=== PATIENT | female | born 1940 | race Caucasian/White ===

== ENCOUNTER 2017-02-26 20:43 | Emergency (ER) | payer MEDICARE, OTHER | END 2017-02-27 01:50 | disposition home or self-care (01) | LOC: ER1 20:43 | DX: M79.662 Pain in left lower leg (principal); M79.661 Pain in right lower leg; G89.29 Other chronic pain; E11.9 Type 2 diabetes mellitus without complications; Z79.02 Long term (current) use of antithrombotics/antiplatelets; Z79.84 Long term (current) use of oral hypoglycemic drugs; Z79.899 Other long term (current) drug therapy; M06.9 Rheumatoid arthritis, unspecified; Z79.891 Long term (current) use of opiate analgesic; Z88.1 Allergy status to other antibiotic agents; Z91.041 Radiographic dye allergy status | CPT/HCPCS: 93005; 96372; 99283; J2270 ==

== ENCOUNTER → 2020-12-20 | Outpatient (CLI) | payer MEDICARE, OTHER ==
[~2020-12-20] MED LIST: CEFTIN PO; CLINDAMYCIN HC150 MG PO; LEVAQUIN500 MG PO; PYRIDIUM200 MG PO
[2020-12-21 08:15] LABS: HIV SCREEN 4TH GENERATION WRFX Non Reactive (Non Reactive)
== END ==
LOC: LAB 13:24
PROVIDERS: Physician Assistant Medical
DX: R53.83 Other fatigue (principal); W46.1XXA Contact with contaminated hypodermic needle, initial encounter
CPT/HCPCS: 36415; 80076; 87389

== ENCOUNTER → 2021-05-09 | Outpatient (CLI) | payer MEDICARE, OTHER ==
[~2021-05-09] MED LIST changes: +LAXATIVE SUPPO1 EACH PR; +MACROBID 100 M100 MG PO
== END ==
LOC: CT 10:14
DX: L84 Corns and callosities (principal); R91.1 Solitary pulmonary nodule; N28.1 Cyst of kidney, acquired; K57.30 Diverticulosis of large intestine without perforation or abscess without bleeding
CPT/HCPCS: 82565; Q9967

== ENCOUNTER 2021-07-20 08:59 | Emergency (ER) | payer MEDICARE, OTHER ==
[~2021-07-20 08:59] MED LIST changes: -LAXATIVE SUPPO1 EACH PR; -MACROBID 100 M100 MG PO
[2021-07-20 11:28] LABS: WHITE BLOOD COUNT 12.9 K/UL (4.5-11.0)
[2021-07-20 11:53] LABS: BUN/CREATININE RATIO 18 (0-10)
[2021-07-20] MEDS ORDERED: MACROBID 100 M100 MG PO (16:35)
[2021-07-20] MEDS ORDERED: LAXATIVE SUPPO1 EACH PR (16:35)
== END 2021-07-20 17:45 | disposition home or self-care (01) ==
LOC: ER1 08:59
PROVIDERS: Physician Assistant
DX: N39.0 Urinary tract infection, site not specified (principal); K56.41 Fecal impaction; M06.9 Rheumatoid arthritis, unspecified; E11.9 Type 2 diabetes mellitus without complications; E78.5 Hyperlipidemia, unspecified; I10 Essential (primary) hypertension; F17.290 Nicotine dependence, other tobacco product, uncomplicated; Z90.710 Acquired absence of both cervix and uterus; Z88.1 Allergy status to other antibiotic agents
CPT/HCPCS: 80053; 81001; 83690; 85025; 99284; Q9967

== ENCOUNTER 2021-10-27 13:13 | Inpatient (IN) | payer MEDICARE, OTHER ==
[~2021-10-27] VITALS: Ht 149.9 cm; Wt 79.2 kg
[~2021-10-27 13:13] MED LIST changes: +LAXATIVE SUPPO1 EACH PR; +MACROBID 100 M100 MG PO
[2021-10-27 14:32] LABS: RED BLOOD COUNT 3.85 M/UL (4.00-5.10)
[2021-10-27 15:00] LABS: BUN/CREATININE RATIO 25 (0-10)
--- NOTE | 2021-10-28 02:26 | NUR ---
PT REFUSED LAB WORK THIS AM. PT WAS EDUCATED ABOUT THE IMPORTANCE OF LAB WORK. PT VERBALIZED UNDERSTANDING AND STILL REFUSED.
[2021-10-28] MEDS ORDERED: CARBIDOPA-LEVO1 EA14 PO (09:32)
[2021-10-28] MEDS ORDERED: FLONASE 0.05% N16 GM (09:33)
[2021-10-28] MEDS ORDERED: BUTRANS1 EAC1 TD (09:34)
[2021-10-28] MEDS ORDERED: GLUCOPHAGE 500500 MG PO (09:35)
[2021-10-28] MEDS ORDERED: HYDROCODON-ACE1 EAC6 PO (09:36)
[2021-10-28] MEDS ORDERED: NARCAN4 MG (09:37)
[2021-10-28] MEDS ORDERED: PROTONIX40 MG PO (09:37)
[2021-10-28] MEDS ORDERED: FUROSEMIDE20 MG PO (09:38)
[2021-10-28] MEDS ORDERED: AMITIZA24 MCG PO (09:38)
[2021-10-28] MEDS ORDERED: SINGULAIR10 MG PO (09:39)
[2021-10-28] MEDS ORDERED: METOPROLOL TART50 MG PO (09:39)
[2021-10-28] MEDS ORDERED: CRESTOR20 MG PO (09:40)
[2021-10-28] MEDS ORDERED: ALBUTEROL2.5 MG/3 M INH (09:43)
[2021-10-28] MEDS ORDERED: PLAVIX75 MG PO (09:44)
[2021-10-29 07:38] LABS: WHITE BLOOD COUNT 9.3 K/UL (4.5-11.0)
[2021-10-29 08:18] LABS: BUN/CREATININE RATIO 23 (0-10)
[2021-10-30 07:01] LABS: HEMOGLOBIN 10.1 gm/dl (12.3-15.3)
[2021-10-30 07:05] LABS: RED BLOOD COUNT 3.32 M/UL (4.00-5.10); WHITE BLOOD COUNT 12.4 K/UL (4.5-11.0)
[2021-10-30 07:33] LABS: BUN/CREATININE RATIO 14 (0-10)
[2021-10-31 06:56] LABS: HEMOGLOBIN 9.1 gm/dl (12.3-15.3); RED BLOOD COUNT 2.99 M/UL (4.00-5.10)
[2021-10-31 07:01] LABS: WHITE BLOOD COUNT 8.3 K/UL (4.5-11.0)
[2021-10-31 07:43] LABS: BUN/CREATININE RATIO 18 (0-10)
--- NOTE | 2021-10-31 07:54 | NUR ---
PATIENT NOTED TO HAVE A K+ OF 2.7. PROVIDER MADE AWARE ALONG WITH THE FACT THAQT PATIENT HAS A LISTED ALLERGY TO POTASSIUM. NEW ORDERS GIVEN.
[2021-11-01 07:40] LABS: HEMOGLOBIN 9.5 gm/dl (12.3-15.3); RED BLOOD COUNT 3.13 M/UL (4.00-5.10); WHITE BLOOD COUNT 8.1 K/UL (4.5-11.0)
[2021-11-01 08:24] LABS: BUN/CREATININE RATIO 16 (0-10)
--- NOTE | 2021-11-01 08:54 | NUR ---
AWARE OF ABNORMAL LABS. NEW ORDERS GIVEN. STATES THAT HE WANTS THE PATIENT TO HAVE 2 BANANNAS PER MEAL TO TREAT HYPOKALEMIA.
[2021-11-02 04:55] LABS: HEMOGLOBIN 8.8 gm/dl (12.3-15.3); RED BLOOD COUNT 2.87 M/UL (4.00-5.10); WHITE BLOOD COUNT 7.6 K/UL (4.5-11.0)
[2021-11-02 05:38] LABS: BUN/CREATININE RATIO 15 (0-10)
[2021-11-03 09:56] LABS: WHITE BLOOD COUNT 7.5 K/UL (4.5-11.0)
[2021-11-03 10:03] LABS: RED BLOOD COUNT 3.29 M/UL (4.00-5.10)
[2021-11-03 10:11] LABS: BUN/CREATININE RATIO 14 (0-10)
--- NOTE | 2021-11-03 17:45 | NUR ---
1400 Soap Suds Enema given with large results noted.
[2021-11-04 08:44] LABS: HEMOGLOBIN 9.7 gm/dl (12.3-15.3); RED BLOOD COUNT 3.14 M/UL (4.00-5.10); WHITE BLOOD COUNT 7.8 K/UL (4.5-11.0)
[2021-11-04 09:08] LABS: BUN/CREATININE RATIO 16 (0-10)
[2021-11-05 16:07] LABS: HEMOGLOBIN 9.9 gm/dl (12.3-15.3); RED BLOOD COUNT 3.18 M/UL (4.00-5.10); WHITE BLOOD COUNT 9.5 K/UL (4.5-11.0)
[2021-11-05 16:30] LABS: BUN/CREATININE RATIO 17 (0-10)
[2021-11-06 07:55] LABS: HEMOGLOBIN 9.2 gm/dl (12.3-15.3); RED BLOOD COUNT 3.06 M/UL (4.00-5.10); WHITE BLOOD COUNT 7.7 K/UL (4.5-11.0)
[2021-11-06 08:11] LABS: BUN/CREATININE RATIO 21 (0-10)
[2021-11-12 09:38] LABS: HEMOGLOBIN 10.6 gm/dl (12.3-15.3); RED BLOOD COUNT 3.44 M/UL (4.00-5.10); WHITE BLOOD COUNT 9.2 K/UL (4.5-11.0)
[2021-11-12 10:09] LABS: BUN/CREATININE RATIO 27 (0-10)
[2021-11-15] MEDS ORDERED: HYDROCODON-ACE1 EAC6 PO (09:17)
--- NOTE | 2021-11-16 11:11 | NUR ---
Doctor notified at approximately 0930 that patient lacked a peripheral IV. states that since she receives nothing via IV that it is fine to not reinsert one.
== END 2021-11-20 18:50 | DRG 562 ==
LOC: ER1 13:13 → CDU 18:39 → PROG CARE 18:39 → MED SURG 4 18:39 → PROG CARE 21:15 → MED SURG 4 10-29 14:53
PROVIDERS: Family Medicine; Internal Medicine; ADMIT Internal Medicine
PROC: B24BZZZ Ultrasonography of Heart with Aorta (ICD-10-PCS; principal; 2021-11-07)
DX: S42.211A Unspecified displaced fracture of surgical neck of right humerus, initial encounter for closed fracture (principal); I21.A1 Myocardial infarction type 2; S22.41XA Multiple fractures of ribs, right side, initial encounter for closed fracture; J96.11 Chronic respiratory failure with hypoxia; Z20.822 Contact with and (suspected) exposure to COVID-19; I10 Essential (primary) hypertension; M21.961 Unspecified acquired deformity of right lower leg; E11.9 Type 2 diabetes mellitus without complications; W01.0XXA Fall on same level from slipping, tripping and stumbling without subsequent striking against object, initial encounter; I25.10 Atherosclerotic heart disease of native coronary artery without angina pectoris; E78.5 Hyperlipidemia, unspecified; F17.210 Nicotine dependence, cigarettes, uncomplicated; E66.9 Obesity, unspecified; H91.90 Unspecified hearing loss, unspecified ear; S51.812A Laceration without foreign body of left forearm, initial encounter; G47.33 Obstructive sleep apnea (adult) (pediatric); E87.6 Hypokalemia; K59.00 Constipation, unspecified; J44.9 Chronic obstructive pulmonary disease, unspecified; Z83.1 Family history of other infectious and parasitic diseases; Z88.0 Allergy status to penicillin; Z88.5 Allergy status to narcotic agent; Z88.6 Allergy status to analgesic agent; Z95.1 Presence of aortocoronary bypass graft; Z82.49 Family history of ischemic heart disease and other diseases of the circulatory system; Z79.899 Other long term (current) drug therapy; Z79.1 Long term (current) use of non-steroidal anti-inflammatories (NSAID); Z68.35 Body mass index [BMI] 35.0-35.9, adult; Z79.84 Long term (current) use of oral hypoglycemic drugs
CPT/HCPCS: ECHO; 36415; 36600; 70450; 71260; 72125; 73030; 73600; 74018; 80048; 80053; 82550; 82553; 82803; 82962; 83735; 84132; 84484; 85025; 85027; 85610; 90715; 92526; 92610; 93005; 93306; 94640; 94664; 94760; 97110; 97110-GP-CQ; 97161; 97166; 97530; 97530-GP-CQ; 97535; 99285; J1650; J7030; Q9967; U0002